=== PATIENT | female | born 1960 | race American Indian/Alaskan Native ===

== ENCOUNTER 2021-02-07 05:55 | Inpatient (IN) ==
[2021-02-07] MEDS ORDERED: Buffered Lidocaine 1% SYRIN 1 ml INTRADERM ONE (06:00)
[2021-02-07] MEDS ORDERED: Lactated Ringers 1000 ml BAG 1,000 ML IV SCH (06:00)
[2021-02-07] MEDS ORDERED: ceFAZolin 2 GM PREMIX 2 GM/50 ML BAG ONE (06:16)
[2021-02-07] MEDS ORDERED: Propofol 10 MG/ML 20 ML BTL ONE (07:07)
[2021-02-07] MEDS ORDERED: fentaNYL 100 mcg/2 ml 50 MCG/ML VIAL ONE ×2 (07:07→09:35)
[2021-02-07] MEDS ORDERED: Midazolam 2 mg/2 ml VIAL 1 mg/ml 2 ml VIAL (2 mg) ONE (07:07)
[2021-02-07] MEDS ORDERED: Rocuronium 50 mg VIAL 10 mg/ml 5 ml VIAL (50 mg) ONE (07:08)
[2021-02-07] MEDS ORDERED: Lidocaine 1% w EPI 1:200,000 SDV 30 ML VIAL ONE (07:38)
[2021-02-07] MEDS ORDERED: Thrombin 5,000 UNITS 1 APPLIC KIT - topical use - TOPICAL ONE (07:39)
[2021-02-07] MEDS ORDERED: Bacitracin OINTMENT TUBE ONE (07:39)
[2021-02-07] MEDS ORDERED: Gelfoam 12-7 ADSORBABL SPONGE ONE (07:39)
[2021-02-07] MEDS ORDERED: Vancomycin 1,000 MG VIAL ONE (07:39)
[2021-02-07] MEDS ORDERED: ceFAZolin VIAL VIAL ONE (07:39)
[2021-02-07] MEDS ORDERED: fentaNYL 250 mcg/5 ml 50 MCG/ML 5 ml VIAL (250 MCG) ONE (08:06)
[2021-02-07] MEDS ORDERED: Dexamethasone IV 4 MG/ML VIAL 1 ml VIAL ONE (09:44)
[2021-02-07] MEDS ORDERED: Ondansetron 4 mg VIAL 2 MG/ML 2 ml VIAL ONE (09:44)
[2021-02-07] MEDS ORDERED: Ondansetron 4 mg VIAL 2 MG/ML 2 ml VIAL IV PRN (10:49)
[2021-02-07] MEDS ORDERED: fentaNYL 100 mcg/2 ml 50 MCG/ML VIAL IV PRN (10:53)
[2021-02-07] MEDS ORDERED: Morphine 2 MG/ML SYRINGE IV PRN (10:56)
[2021-02-07] MEDS ORDERED: Polyethylene Glycol 3350 17 GM PACKET PO PRN (10:56)
[2021-02-07] MEDS ORDERED: Morphine 4 MG/ML VIAL (1 ml) ONE (10:56)
[2021-02-07] MEDS: Morphine 4 MG/ML VIAL (1 ml) IV PRN ×3 (10:57→11:47)
[2021-02-07] MEDS ORDERED: Acetaminophen IV 1 GM/100ML 100 ML IV SCH (11:00)
[2021-02-07] MEDS ORDERED: Acetaminophen IV 1 GM/100ML 100 ML IV ONE (11:17)
[2021-02-07] MEDS ORDERED: Labetalol IV 5 MG/ML 20 ml VIAL ONE (11:45)
[2021-02-07] MEDS: NS 0.9% 1000 ml BAG 1,000 ML IV SCH ×2 (14:16→21:44)
[2021-02-07] MEDS: Clindamycin 900 MG/D5W BAG 900 MG/50 ML BAG IVPB SCH (16:26)
[2021-02-07] MEDS ORDERED: Thiamine 100 MG/ML 2 ml VIAL (200 mg) ONE (17:14)
[2021-02-07] MEDS: Thiamine 100 MG/ML 2 ml VIAL 100 MG, Folic Acid IV 1 MG, Multiple Vitamin IV ADULT 10 M... IV SCH (17:16)
[2021-02-07] MEDS: Dexamethasone IV 4 MG/ML VIAL 1 ml VIAL IV SLOW PU SCH (17:19)
[2021-02-07] MEDS: Magnesium Hydroxide LIQ 30 ML UDC PO SCH (20:26)
[2021-02-07] MEDS: Acetaminophen IV 1 GM/100ML 100 ML IV SCH (20:26)
[2021-02-08] MEDS: Clindamycin 900 MG/D5W BAG 900 MG/50 ML BAG IVPB SCH ×3 (00:54→16:45)
[2021-02-08] MEDS: Dexamethasone IV 4 MG/ML VIAL 1 ml VIAL IV SLOW PU SCH ×2 (02:16→09:52)
[2021-02-08] MEDS: Acetaminophen IV 1 GM/100ML 100 ML IV SCH (04:00)
[2021-02-08 05:35] LABS: ABS Lymphocytes 0.9 10^3/ul (1.0-4.8); ABS Monocytes 0.4 10^3/ul (0-0.8); Hematocrit 32 % (35-47); Lymphocyte % 9.4 %; Mean Corpuscular HGB Conc 34 g/dL (31-36); Mean Corpuscular Hemoglobin 31 pg (27-31); Mean Corpuscular Volume 90 fL (80-97); Mean Platelet Volume 10.2 fL (7.4-10.4); Platelet Count 211 10^3/uL (150-450); Red Blood Count 3.57 10^6 /uL (3.70-4.87); Red Cell Distribution Width 15 % (10-15); White Blood Count 9.3 10^3/uL (3.5-10.8)
[2021-02-08 05:50] LABS: Calcium 8.4 mg/dL (8.6-10.3); Potassium 4.2 mmol/L (3.5-5.0); eGFR CKD-EPI 85.1 (>60)
[2021-02-08] MEDS: Enoxaparin 40 MG/0.4 ML SYR SUBCUT SCH (08:54)
[2021-02-08] MEDS: Magnesium Hydroxide LIQ 30 ML UDC PO SCH ×2 (08:54→21:50)
[2021-02-08] MEDS: Thiamine 100 MG/ML 2 ml VIAL 100 MG, Folic Acid IV 1 MG, Multiple Vitamin IV ADULT 10 M... IV SCH (09:38)
[2021-02-09] MEDS: Clindamycin 900 MG/D5W BAG 900 MG/50 ML BAG IVPB SCH ×3 (00:25→15:26)
[2021-02-09] MEDS: Magnesium Hydroxide LIQ 30 ML UDC PO SCH ×2 (08:59→21:18)
[2021-02-09] MEDS: Enoxaparin 40 MG/0.4 ML SYR SUBCUT SCH (09:04)
[2021-02-09] MEDS: Thiamine 100 MG/ML 2 ml VIAL 100 MG, Folic Acid IV 1 MG, Multiple Vitamin IV ADULT 10 M... IV SCH (09:10)
[2021-02-10] MEDS: Clindamycin 900 MG/D5W BAG 900 MG/50 ML BAG IVPB SCH ×2 (00:37→08:45)
[2021-02-10 07:15] VITALS: BP 154/90
[2021-02-10] MEDS: Enoxaparin 40 MG/0.4 ML SYR SUBCUT SCH (08:44)
[2021-02-10] MEDS: Magnesium Hydroxide LIQ 30 ML UDC PO SCH (12:13)
== END 2021-02-10 11:05 | disposition home or self-care (01) | DRG 321 ==
LOC: AA 05:55 → SSU 14:47
PROVIDERS: ADMIT Neurological Surgery; ATTEND Neurological Surgery